=== PATIENT | female | born 1955 | race Caucasian/White ===

== ENCOUNTER → 2025-04-07 | Day surgery (SDC) | payer MEDICARE, BC ==
[~2025-04-07] MED LIST: Ketamine 500 mg/10 ML MDV IV ONE; Midazolam 1 MG/ML 2 ML SDV IV ONE; Propofol 200 MG/20 ML SDV IV ONE
[2025-04-07] MEDS: Lactated Ringers 1,000 ML IV SCH (07:44)
[2025-04-07 10:11] VITALS: BP 155/70; PULSE 55
== END | disposition home or self-care (01) ==
LOC: FB.SDS 07:09
PROVIDERS: ATTEND Surgery
DX: Z12.11 Encounter for screening for malignant neoplasm of colon (principal); E11.9 Type 2 diabetes mellitus without complications; I10 Essential (primary) hypertension; E66.9 Obesity, unspecified; Z68.42 Body mass index [BMI] 45.0-49.9, adult; Z79.899 Other long term (current) drug therapy; Z79.84 Long term (current) use of oral hypoglycemic drugs; Z79.82 Long term (current) use of aspirin
CPT/HCPCS: 00812; 82947; A9270; G0121; J2250; J2704; J3490; J7120